=== PATIENT | female | born 1975 | race Caucasian/White ===

== ENCOUNTER 2016-09-13 12:24 | Emergency (ER) | payer BC, OTHER ==
[2016-09-13 13:03] VITALS: BP 131/79
--- NOTE | 2016-09-13 13:09 | UC ---
Throat Pain/Nasal Adilson HPI - HPI Summary HPI Summary: sinus pain and pressure x 1 week , + bloody nasal discharge, no fever, no chills - History of Current Complaint Chief Complaint: UCRespiratory Stated Complaint: COUGH Time Seen by Provider: 09/13/16 12:38 Hx Obtained From: Patient Hx Last Menstrual Period: 09/13/16 Onset/Duration: Gradual Onset, Lasting Days - 7, Still Present Severity: Moderate Cough: Nonproductive Associated Signs & Symptoms: Positive: Wheezing, Sinus Discomfort, Nasal Discharge. Negative: Dysphagia, Fever, Rash - Allergies/Home Medications Allergies/Adverse Reactions: Allergies Allergy/AdvReac Type Severity Reaction Status Date / Time Sulfa Drugs Allergy Severe Rash Verified 09/13/16 12:45 Ciprofloxacin [From Cipro] AdvReac Severe HEART Verified 09/13/16 12:45 PALPITATIONS Codeine AdvReac Severe HYPERTENSIO Verified 09/13/16 12:45 N Procaine [From Novocain] AdvReac Severe HYPOTENSION Verified 09/13/16 12:45 Home Medications: Home Medications Albuterol 2.5MG/3ML (0.083%)* [Ventolin 2.5 MG/3 ML NEB.JANNIE*] 2.5 mg INH Q6H PRN 09/13/16 [History Confirmed 09/13/16] FLUoxetine CAP* [PROzac CAP*] 20 mg PO DAILY 09/13/16 [History Confirmed ] Levonorgestrel & Eth Estradiol [Orsythia] 1 tab PO DAILY 09/13/16 [History Confirmed 09/13/16] Lisinopril [Zestril 5 MG-] 5 mg PO DAILY 09/13/16 [History Confirmed 09/13/16] PMH/Surg Hx/FS Hx/Imm Hx Endocrine History Of: Denies: Diabetes, Thyroid Disease Cardiovascular History Of: Reports: Cardiac Disorders - MVP; heart murmur, Hypertension Denies: Congestive Heart Failure Respiratory History Of: Reports: Asthma Denies: COPD GI/ History Of: Denies: Ulcer, Renal Disease - Surgical History Surgical History: Yes Surgery Procedure, Year, and Place: CARPAL TUNNEL AND R SHOULDER SURGERIES, TONSILLECTOMY - Family History Known Family History: Negative: Diabetes - Social History Alcohol Use: Occasionally Substance Use Type: None Smoking Status (MU): Never Smoked Tobacco Review of Systems Constitutional: Chills, Fatigue Skin: Negative Eyes: Negative ENT: Sore Throat, Ear Ache, Nasal Discharge Respiratory: Cough Cardiovascular: Negative Gastrointestinal: Negative Genitourinary: Negative Motor: Negative All Other Systems Reviewed And Are Negative: Yes Physical Exam Triage Information Reviewed: Yes Appearance: Well-Appearing, No Pain Distress, Well-Nourished Vital Signs: Initial Vital Signs Temp 99.6 F 09/13/16 12:48 Pulse 75 09/13/16 12:48 Resp 18 09/13/16 12:48 BP 131/79 09/13/16 12:48 Pulse Ox 99 09/13/16 12:48 Vital Signs Reviewed: Yes Eyes: Positive: Conjunctiva Clear ENT: Positive: Normal ENT inspection, Pharyngeal erythema, Nasal congestion, Nasal drainage, TMs normal Neck: Positive: Supple, Nontender, No Lymphadenopathy Respiratory: Positive: Chest non-tender, Lungs clear, Normal breath sounds Cardiovascular: Positive: RRR, No Murmur, Pulses Normal Skin Exam: Normal Throat Pain/Nasal Course/Dx - Differential Dx/Diagnosis Provider Diagnoses: sinusitis Discharge - Discharge Plan Condition: Stable Disposition: HOME Prescriptions: Amoxicillin/Clavulanate TAB* [Augmentin TAB 875*] 875 mg PO BID #20 tab Patient Education Materials: Sinusitis (ED) Referrals: Gerber Dorsey MD [Primary Care Provider] - 7 Days
== END 2016-09-13 13:20 | disposition home or self-care (01) ==
LOC: UCCORT 12:24
DX: R09.81 Nasal congestion (principal); J32.9 Chronic sinusitis, unspecified; I10 Essential (primary) hypertension; Z88.6 Allergy status to analgesic agent; Z88.4 Allergy status to anesthetic agent; Z88.1 Allergy status to other antibiotic agents; Z88.2 Allergy status to sulfonamides
CPT/HCPCS: 99212; G0463